=== PATIENT | female | born 1945 | race Caucasian/White ===

== ENCOUNTER → 2016-10-03 | Outpatient (CLI) | payer OTHER ==
--- NOTE | ~2016-10-03 | CT3 ---
[facility] A Service of [facility] & [facility] [place] RADIOLOGY TEXT RESULTS PATIENT: LEXY ROSALES LOCATION: [facility] : 47 UNIT #: [id number] AGE: [address]: Tom Escobar MD SEX: F ORDER DR: [id number] [facility] [address] [place], [place] [address] [id number] O MR#: [id number] Acc #: [id number] NAME: LEXY ROSALES : 1945 SEX: F STUDY DATE/TIME: 10/03/2016 16:03 UNIT: [facility] ROOM: STUDY DESCRIPTION: CT Abd and Pelv WWo Cont Attending Physician: Darren Escobar M.D. Referring Physician: Darren Escobar M.D. Ordering Physician: Darren Escobar M.D. Primary Care Physician: Darren Escobar M.D. MEDICAL IMAGING REPORT This report is preliminary unless electronic signature is present EXAM Abdomen and pelvis CT with without contrast with multiphase postcontrast evaluation of the kidneys HISTORY Renal mass noted on recent IVP. Hematuria noted 1 day ago. TECHNIQUE Axial imaging was obtained through the abdomen pre and postcontrast with multiphase postcontrast evaluation of the abdomen and pelvis. This CT exam was performed with one or more of the following radiation dose reduction techniques: automatic exposure control, adjustment of mA and/or kV according to patient size, and iterative reconstruction. FINDINGS Precontrast evaluation of the abdomen shows no evidence of nephrolithiasis. Multiphase postcontrast evaluation shows no definite renal masses on either side. In particular, the area of mucosal irregularity seen in the upper pole lili of the right kidney on the recent IVP shows no definite asymmetry with respect to the opposite left kidney. On the delayed excretory phase, there is slight nodularity seen in the upper pole lili that does correspond to the abnormality seen on IVP and this does remain suspicious for a transitional cell tumor. Consider direct evaluation with retrograde pyelography and ureteroscopy. Both ureters are nondilated. There is no evidence of retroperitoneal adenopathy or ascites. The liver, spleen, and pancreas are unremarkable. A few diverticula are seen but there is no evidence of diverticulitis. IMPRESSION 1. The right upper pole caliceal abnormality seen on IVP is better seen on the IVP study and no definite abnormality is seen on the CT except for the excretory phase images where there is a slight nodularity [facility] A Service of [facility] & [facility] [place] RADIOLOGY TEXT RESULTS PATIENT: LEXY ROSALES LOCATION: [facility] : 47 UNIT #: [id number] AGE: [address]: Tom Escobar MD SEX: F ORDER DR: noted to the right upper pole lili. A right upper pole transitional cell malignancy is not excluded. 2. Otherwise negative study except for mild diverticulosis. Dictated by... Kaushik Nair M.D. THIS IS AN ELECTRONICALLY VERIFIED REPORT Kaushik Nair M.D. at 10/04/2016 1:04 PM JANAY/arianna TD: 10/04/2016 09:49 JOB #: [id number] MEDICAL IMAGING REPORT Page 1 of 1 COPY
== END | disposition home or self-care (01) ==
LOC: CCAT 14:09
PROVIDERS: Internal Medicine
DX: N28.89 Other specified disorders of kidney and ureter (principal); K57.90 Diverticulosis of intestine, part unspecified, without perforation or abscess without bleeding
CPT/HCPCS: 74178; 82565; Q9967